=== PATIENT | male | born 1950 | race Caucasian/White ===

== ENCOUNTER 2021-06-15 07:12 | Emergency (ER) | payer MEDICARE, OTHER ==
--- NOTE | 2021-06-15 07:31 | EDM.PDOC ---
ED HPI GENERAL MEDICAL PROBLEM - General Chief Complaint: Syncope Stated Complaint: [facility] Time Seen by Provider: 06/15/21 07:27 - History of Present Illness INITIAL COMMENTS - FREE TEXT/NARRATIVE: 70-year-old male brought in by EMS after getting very lightheaded and thinking he was going to pass out when trying to stand up. Lately the patient has noticed that if he has been out working in the garden when he tries to stand up he gets a little lightheaded. However this morning when he tried to stand up he could not. He was afraid he was going to pass out. Patient has no prior history of having problems like this. Patient is on two blood pressure medications losartan and hydrochlorothiazide and none of his other medications should affect his heart rate. He has not had any associated chest pain chest discomfort breathing difficulties or shortness of breath. Headache Pain Score (Numeric/FACES): 2 - Related Data Allergies Allergy/AdvReac Type Severity Reaction Status Date / Time No Known Allergies Allergy Verified 06/15/21 07:32 Home Meds: Home Meds Aspirin [Halfprin] 81 mg PO DAILY 06/15/21 [History] Fluticasone Propionate [Flonase Allergy Relief] 1 spray PATEL DAILY 06/15/21 [History] Losartan Potassium [Cozaar] 100 mg PO BEDTIME 06/15/21 [History] Pantoprazole [ProTONIX] 40 mg PO BEDTIME 06/15/21 [History] Potassium Chloride [Klor-Con M20] 20 meq PO ASDIRECTED #1 tab.er 06/15/21 [Rx] Sertraline [Zoloft] 100 mg PO BEDTIME 06/15/21 [History] Simvastatin [Zocor] 20 mg PO BEDTIME 06/15/21 [History] hydroCHLOROthiazide [Hydrochlorothiazide] 12.5 mg PO DAILY 06/15/21 [History] ED ROS GENERAL - Review of Systems Review Of Systems: See Below Constitutional: Reports: Other (Dizziness) HEENT: Reports: No Symptoms Respiratory: Reports: No Symptoms Cardiovascular: Reports: Other (Near syncope). Denies: Chest Pain, Edema Endocrine: Reports: No Symptoms GI/Abdominal: Reports: No Symptoms : Reports: No Symptoms Musculoskeletal: Reports: No Symptoms Skin: Reports: No Symptoms Neurological: Reports: No Symptoms Psychiatric: Reports: No Symptoms Hematologic/Lymphatic: Reports: No Symptoms ED EXAM, GENERAL - Physical Exam Exam: See Below Exam Limited By: No Limitations General Appearance: Alert, No Apparent Distress Eye Exam: Bilateral Eye: Normal Inspection, PERRL Ears: Normal External Exam, Normal Canal, Hearing Grossly Normal, Normal TMs Nose: Normal Inspection, Normal Mucosa, No Blood Throat/Mouth: Normal Inspection, Normal Lips, Normal Teeth, Normal Gums, Normal Oropharynx, Normal Voice, No Airway Compromise Head: Atraumatic, Normocephalic Neck: Normal Inspection, Supple, Non-Tender, Full Range of Motion. No: Lymphadenopathy (L), Lymphadenopathy (R) Respiratory/Chest: No Respiratory Distress, Lungs Clear, Normal Breath Sounds Cardiovascular: Regular Rate, Rhythm, No Edema, No Murmur GI/Abdominal: Normal Bowel Sounds, Soft, Non-Tender Back Exam: Normal Inspection. No: CVA Tenderness (L), CVA Tenderness (R) Neurological: Alert, Oriented, Normal Cognition #1 Interpretation EKG Date: 06/08/21 Rhythm: Other (Sinus bradycardia) Rate (Beats/Min): 48 [place]: Normal P-Wave: Present (First-degree AV block) QRS: Normal ST-T: Other (Inverted T waves in lead III near isoelectric in aVF) QT: Normal Comparison: NA - No Prior EKG EKG Interpretation Comments: Abnormal sinus bradycardia Course - Vital Signs Last Recorded V/S: Last Vital Signs Temp 35.8 C L 06/15/21 07:25 Pulse 48 L 06/15/21 07:25 Resp 16 06/15/21 07:25 BP 138/85 06/15/21 07:25 Pulse Ox 95 06/15/21 07:25 - Orders/Labs/Meds Orders: Active Orders 24 hr Category Date Time Status EKG Documentation Completion [RC] ASDIRECTED Care 06/15/21 07:26 Active Holter Monitor 24 Hours [RC] .PRN Care 06/15/21 11:07 Active EKG 12 Lead [EK] Stat Ther 06/15/21 07:26 Ordered Labs: Laboratory Tests 06/15/21 06/15/21 Range/Units 07:34 07:34 WBC 8.32 (4.23-9.07) K/mm3 RBC 5.03 (4.63-6.08) M/mm3 Hgb 14.9 (13.7-17.5) gm/dl Hct 45.5 (40.1-51.0) % MCV 90.5 (79.0-92.2) fl MCH 29.6 (25.7-32.2) pg MCHC 32.7 (32.2-35.5) g/dl RDW Std Deviation 44.8 H (35.1-43.9) fL Plt Count 225 (163-337) K/mm3 MPV 10.1 (9.4-12.3) fl Neut % (Auto) 83.4 H (34.0-67.9) % Lymph % (Auto) 9.7 L (21.8-53.1) % Sampson % (Auto) 4.6 L (5.3-12.2) % Eos % (Auto) 1.7 (0.8-7.0) Baso % (Auto) 0.4 (0.1-1.2) % Neut # (Auto) 6.94 H (1.78-5.38) K/mm3 Lymph # (Auto) 0.81 L (1.32-3.57) K/mm3 Sampson # (Auto) 0.38 (0.30-0.82) K/mm3 Eos # (Auto) 0.14 (0.04-0.54) K/mm3 Baso # (Auto) 0.03 (0.01-0.08) K/mm3 Manual Slide Review Normal smear Sodium 145 (136-145) mEq/L Potassium 3.1 L (3.5-5.1) mEq/L Chloride 107 (98-107) mEq/L Carbon Dioxide 26 (21-32) mEq/L Anion Gap 15.1 H (5-15) BUN 27 H (7-18) mg/dL Creatinine 1.2 (0.7-1.3) mg/dL Est Cr Clr Drug Dosing 62.75 mL/min Estimated GFR (MDRD) > 60 (>60) mL/min BUN/Creatinine Ratio 22.5 H (14-18) Glucose 184 H (70-99) mg/dL Calcium 8.3 L (8.5-10.1) mg/dL Magnesium 2.1 (1.8-2.4) mg/dL Total Bilirubin 0.5 (0.2-1.0) mg/dL AST 20 (15-37) U/L ALT 24 (16-63) U/L Alkaline Phosphatase 60 (46-116) U/L Troponin I < 0.017 (0.00-0.056) ng/mL Total Protein 6.7 (6.4-8.2) g/dl Albumin 3.5 (3.4-5.0) g/dl Globulin 3.2 gm/dL Albumin/Globulin Ratio 1.1 (1-2) Meds: Medications Discontinued Medications Generic Name Dose Route Start Last Admin Trade Name Nohemi PRN Reason Stop Dose Admin Lactated Ringer's 1,000 mls @ 999 mls/hr 06/15/21 09:22 06/15/21 09:44 Ringers, Lactated IV 06/15/21 10:22 999 mls/hr .BOLUS ONE Administration Potassium Chloride 40 meq 06/15/21 09:22 06/15/21 09:44 Potassium Chloride 20 Meq Tab.Er PO 06/15/21 09:23 40 meq ONETIME ONE Administration - Re-Assessments/Exams Free Text/Narrative Re-Assessment/Exam: 06/15/21 09:25 Patient is doing okay at this time his potassium is low we will give him 40 mEq of oral potassium he also looks a little dry we will give him a liter of LR. 06/15/21 11:10 Patient is doing better he is ambulatory not having any problems. We will get ready to discharge the patient with a Holter monitor. His pulse is in the mid to upper 50s. I will send him home with some potassium as well Departure - Departure Time of Disposition: 11:11 Disposition: Home, Self-Care 01 Clinical Impression: Bradycardia, Hypokalemia, Dehydration, mild - Discharge Information Referrals: Arthur Verma MD [Primary Care Provider] - Forms: ED Department Discharge Additional Instructions: Return to the emergency room with any questions problems or worsening symptoms. I sent in a prescription for potassium take both of these tomorrow morning. Increase your fluid intake. Return the Holter monitor as instructed. Follow-up with your regular physician later this week. Sepsis Event Note (ED) - Focused Exam Vital Signs: Vital Signs Temp Pulse Resp BP Pulse Ox 06/15/21 07:25 35.8 C L 48 L 16 138/85 95 - My Orders Last 24 Hours: My Active Orders 06/15/21 07:26 EKG Documentation Completion [RC] ASDIRECTED EKG 12 Lead [EK] Stat 06/15/21 11:07 Holter Monitor 24 Hours [RC] .PRN - Assessment/Plan Last 24 Hours: My Active Orders 06/15/21 07:26 EKG Documentation Completion [RC] ASDIRECTED EKG 12 Lead [EK] Stat 06/15/21 11:07 Holter Monitor 24 Hours [RC] .PRN
--- NOTE | 2021-06-15 08:14 | CR ---
Chest: Portable view of the chest was obtained. Comparison: No prior chest imaging is available. Heart size is normal. Slight tortuosity of the thoracic aorta is seen. Lungs are clear with no acute parenchymal change. Old rib fracture is noted within the left sixth rib which appears healed. No acute osseous abnormality is appreciated. Impression: 1. Old left-sided rib fracture which appears healed. 2. Nothing acute is appreciated on portable chest x-ray. Diagnostic code #2
[2021-06-15] MEDS ORDERED: Potassium Chloride 20 MEQ Tab.ER PO ONE (09:22)
[2021-06-15] MEDS ORDERED: Lactated Ringers 1,000 ML IV ONE (09:22)
== END 2021-06-15 11:55 | disposition home or self-care (01) ==
LOC: JD.ED 07:12
DX: E86.0 Dehydration (principal); E87.6 Hypokalemia; R00.1 Bradycardia, unspecified; I44.0 Atrioventricular block, first degree; Z79.82 Long term (current) use of aspirin; Z79.899 Other long term (current) drug therapy
CPT/HCPCS: 36415; 71045; 80053; 83735; 84484; 85025; 93005; 93225; 93226; 99285; A9270; J7120; 93010; 99284

== ENCOUNTER 2021-10-22 18:28 | Emergency (ER) | payer MEDICARE, OTHER ==
--- NOTE | 2021-10-22 20:24 | EDM.PDOC ---
ED HPI GENERAL MEDICAL PROBLEM - General Chief Complaint: Cardiovascular Problem Stated Complaint: HEADACHE/HIGH BLOOD PRESSURE Time Seen by Provider: 10/22/21 19:51 Source of Information: Reports: Patient, Family () History Limitations: Reports: No Limitations - History of Present Illness INITIAL COMMENTS - FREE TEXT/NARRATIVE: Mr. Coppola is a very pleasant 70-year-old gentleman who now presents to the ED stating that he has had elevated blood pressure readings over the past 2 days, with a low of 158/101 and a high of 179/118. He has been checking his blood pressure several times a day, noting that subsequent blood pressure readings are higher than initial readings. He reports that he had a headache yesterday, and that when his blood pressure was checked, it was elevated. It was the same again after he was shoveling snow. The patient is concerned, because he suffered a stroke in June of this year, felt most likely due to an atrial septal defect. A loop recorder was placed this past 10/18/2021, in order to look for asymptomatic atrial fibrillation. If none is found, the patient will eventually go for an atrial septal plug. The patient states that he called his Director Hardware, who checked his loop recorder, finding no abnormalities. He advised that the patient come to the ED for evaluation, anyway. Here in the ED, the patient's initial BP was found to be elevated 196/102, with bradycardia 58 bpm. He is afebrile, saturating 97% on room air. A subsequent blood pressure reading, without treatment, was down to 180/96. The patient appe ars to be comfortable, in no acute distress. Prior to 2 days ago, the patient denies having a recent fever, chills, sore throat, ear pain, nasal or sinus congestion, cough, dyspnea, chest pain, palpi tations, nausea, vomiting, constipation, diarrhea, abdominal pain, urinary symptoms, recent weight gain or weight loss, recent bloody bowel movements or black bowel movements, recent joint aches, headaches, or rashes. The patient's PCP is Dr. Arthur Verma. His Director Hardware is Dr. Deepak Welch at [facility]. His Neurologist is Dr. Grayson Alejo, at [facility]. He has received a single [employer] Covid vaccination and an influenza vaccination this season. Headache Pain Score (Numeric/FACES): 0 - Related Data Allergies Allergy/AdvReac Type Severity Reaction Status Date / Time No Known Allergies Allergy Verified 10/22/21 19:51 Home Meds: Home Meds Fluticasone Propionate [Flonase Allergy Relief] 1 spray PATEL DAILY 06/15/21 [History] Losartan Potassium [Cozaar] 100 mg PO BEDTIME 06/15/21 [History] Pantoprazole [ProTONIX] 40 mg PO BEDTIME 06/15/21 [History] Sertraline [Zoloft] 100 mg PO BEDTIME 06/15/21 [History] Albuterol Sulfate [Proair Hfa] 8.5 gm IH Q4H PRN 10/22/21 [History] Clopidogrel Bisulfate [Plavix] 75 mg PO DAILY 10/22/21 [History] Rosuvastatin [Crestor] 20 mg PO DAILY 10/22/21 [History] Sucralfate 1 gm PO ASDIRECTED 10/22/21 [History] Tamsulosin HCl [Flomax] 0.4 mg PO DAILY 10/22/21 [History] Past Medical History HEENT History: Reports: Impaired Vision Cardiovascular History: Reports: High Cholesterol, Hypertension, Other (See Below) (Atrial septal defect) Gastrointestinal History: Reports: GERD Neurological History: Reports: CVA Psychiatric History: Reports: Anxiety - Infectious Disease History Infectious Disease History: Reports: Chicken Pox, Novel Coronavirus (dx'd 09/14/2021) - Past Surgical History HEENT Surgical History: Reports: LASIK, Tonsillectomy Dermatological Surgical History: Reports: Skin Biopsy Social & Family History - Family History Family Medical History: No Pertinent Family History - Tobacco Use Tobacco Use Status *Q: Never Tobacco User - Caffeine Use Caffeine Use: Reports: Soda Caffeine Use Comment: 3/day - Recreational Drug Use Recreational Drug Use: No ED ROS GENERAL - Review of Systems Review Of Systems: Comprehensive ROS is negative, except as noted in HPI. ED EXAM, GENERAL - Physical Exam Exam: See Below Exam Limited By: No Limitations General Appearance: Alert, WD/WN, No Apparent Distress Eye Exam: Bilateral Eye: EOMI, Normal Inspection Ears: Normal External Exam, Hearing Grossly Normal Nose: Normal Inspection Throat/Mouth: Normal Inspection, Normal Lips, Normal Voice, No Airway Compromise Head: Atraumatic, Normocephalic Neck: Normal Inspection, Full Range of Motion Respiratory/Chest: No Respiratory Distress, Lungs Clear, Normal Breath Sounds, No Accessory Muscle Use Cardiovascular: Normal Peripheral Pulses, Regular Rate, Rhythm, No Edema, No Gallop, No JVD, No Murmur, No Rub Peripheral Pulses: 3+: Radial (L), Radial (R) GI/Abdominal: Normal Bowel Sounds, Soft, Non-Tender, No Organomegaly, No Distention, No Abnormal Bruit, No Mass Back Exam: Normal Inspection, Full Range of Motion, NT Extremities: Normal Inspection, Normal Range of Motion, No Pedal Edema, Normal Capillary Refill Neurological: Alert, Oriented, Normal Cognition, No Motor/Sensory Deficits Psychiatric: Normal Affect Skin Exam: Warm, Dry, Intact, Normal Color, No Rash Course - Vital Signs Last Recorded V/S: Last Vital Signs Temp 36.6 C 10/22/21 19:46 Pulse 58 L 10/22/21 19:46 Resp 16 10/22/21 19:46 BP 196/102 H 10/22/21 19:46 Pulse Ox 97 10/22/21 19:46 - Re-Assessments/Exams Free Text/Narrative Re-Assessment/Exam: 10/22/21 20:19 As above, the patient's BP was 196/102 at triage, down to 180/96 without treatment. I explained to the patient that spurious elevations of blood pressure are not meaningful, and that current guidelines do not recommend emergent treatment. Going forward, in accordance with current guidelines, I recommended that he begin checking his blood pressure 2-3 times a week, preferably at different times, for 2 to 3 weeks, but only under restful conditions. He is to write the numbers down, then follow-up with Dr. Verma to see if modification of his current antihypertensive medications is warranted. After this explanation, the patient and his feel much better. Departure - Departure Time of Disposition: 20:21 Disposition: Home, Self-Care 01 Condition: Good Clinical Impression: Elevated blood pressure reading Referrals: Deepak Welch DO [Ordering Only Provider] - Arthur Verma MD [Primary Care Provider] - Grayson Alejo [Ordering Only Provider] - Forms: ED Department Discharge Additional Instructions: You were seen in the emergency room for elevated blood pressure readings over the past 2 days. As discussed, current guidelines do not recommend treatment of spurious blood pressure readings. Going forward, we recommend that you check your blood pressure 2-3 times a week, preferably at different times of the day, for 2 to 3 weeks. It is important that you check your blood pressure only under restful conditions = you are sitting quietly for at least 5, and preferably 15 minutes, that you are not in pain, anxious, or ill. You are to support the arm that your blood pressure is being checked in with the cuff at the height of your heart. Write the numbers down, and do not consider yourself if some are elevated. After 2 to 3 weeks, take those numbers to Dr. Verma to see if he would recommend modification of your current blood pressure medication. In the meantime, you are to continue to take your currently prescribed losartan at bedtime. If any other problems, please do not hesitate to return to the ER. Sepsis Event Note (ED) - Evaluation Sepsis Screening Result: No Definite Risk - Focused Exam Vital Signs: Vital Signs Temp Pulse Resp BP Pulse Ox 10/22/21 19:46 36.6 C 58 L 16 196/102 H 97
== END 2021-10-22 20:30 | disposition home or self-care (01) ==
LOC: JD.ED 18:28
DX: I10 Essential (primary) hypertension (principal); E78.00 Pure hypercholesterolemia, unspecified; K21.9 Gastro-esophageal reflux disease without esophagitis; Z86.73 Personal history of transient ischemic attack (TIA), and cerebral infarction without residual deficits; Z79.899 Other long term (current) drug therapy
CPT/HCPCS: 99283